=== PATIENT | female | born 1930 | race Caucasian/White ===

== ENCOUNTER 2017-09-24 08:06 | Observation (INO) ==
--- NOTE | 2017-09-24 08:48 | Emergency Department Note ---
Disposition Clinical Impression: Hyponatremia, Left arm weakness, Anxiety Left shoulder pain Qualifiers: Chronicity: acute Qualified Code(s): M25.512 - Pain in left shoulder Disposition: Admitted As Inpatient Condition: Fair Referrals: Darby Reynoso CNP [Primary Care Provider] - Forms: ED Satisfaction Letter, Work/School Release General Adult HPI - General Chief complaint: ED General Medical Stated complaint: multiple complaints Time Seen by Provider: 09/24/17 08:35 Source: patient, family Mode of arrival: private vehicle Limitations: no limitations Nursing Notes Reviewed: Yes Vital Signs Reviewed: Yes - History of Present Illness Pt Subjective Complaint: Left arm weakness and left leg numbness since yesterday , tired and weak for Onset (ago): day(s) (Left arm weakness, left leg numbness since yesterday morning. Tired and weak all over for months) Location: left, upper extremity (Left arm feels weak. However, she has also describes pain in the shoulder with certain movements. No known trauma or injury) Radiation: non-radiation Pain Severity: moderate Pain Scale: 5 Quality: stabbing, sharp Consistency: intermittent Improves with: immobilization Worsens with: movement, other (Use) Associated symptoms: Reports: confusion ("Sometimes" per family member), loss of appetite, weakness. Denies: chest pain, cough, diaphoresis, fever/chills, headaches, malaise, nausea/vomiting, rash, seizure, shortness of breath, syncope Treatments Prior to Arrival: none - Related Data Home Medications Medication Instructions Recorded Confirmed Cyanocobalamin (B-12) [Vitamin B12] 1,000 mcg PO DAILY 09/24/17 09/24/17 raNITIdine HCl [Zantac] 150 mg PO DAILY 09/24/17 09/24/17 Allergies Allergy/AdvReac Type Severity Reaction Status Date / Time Penicillins Allergy Hives Verified 09/24/17 10:27 All systems ED: reviewed and negative except as stated. Review of Systems: As Per HPI Constitutional: Reports: as per HPI, weakness. Denies: fever, chills, weight change, night sweats Eyes: Denies: eye pain, eye discharge, vision change ENT ED: Reports: congestion ("A little" per patient) Cardiovascular: Reports: dyspnea on exertion (Sometimes per family member). Denies: chest pain, palpitations, orthopnea, edema, syncope Respiratory: Denies: cough, dyspnea, wheezes, stridor Gastrointestinal: Denies: abdominal pain, nausea, vomiting, diarrhea, constipation Genitourinary: Denies: urgency, dysuria, frequency, hematuria Musculoskeletal: Denies: back pain, neck pain, joint swelling, arthralgia Integumentary: Denies: rash, lesions, pruritus Neurological: Reports: as per HPI, weakness, numbness (Intermittent, left leg). Denies: headache, paresthesias, vertigo Psychiatric: Reports: anxiety (Patient states, "I am so very anxious and I do not want to be here."), depression (Family expresses concerns that the patient is experiencing depression). Denies: suicidal thoughts, homicidal thoughts, auditory hallucinations, visual hallucinations Endocrine: Reports: fatigue Hematological/Lymphatic: Denies: easy bleeding, easy bruising Past Medical History - Past Medical History Attestation: Yes The following information was validated with the patient. Source: patient, old records reviewed, obtained from family Medical history: Reports: hypertension (Prescription medications stopped two years ago), osteoporosis Surgical history: Reports: non-contributory Psychiatric history: Reports: no psych history - Social History Smoking Status: Never smoker Alcohol use: Reports: none Drug use: Reports: none Physical Exam - General Limitations: no limitations General appearance: alert, in no apparent distress, anxious - Head Head exam: atraumatic, normocephalic, normal inspection - Eye Eye exam: Present: normal appearance, PERRL, EOMI. Absent: scleral icterus, conjunctival injection, nystagmus, miosis, mydriasis, periorbital swelling, periorbital tenderness - ENT ENT exam: mucous membranes dry - Neck Neck exam: Present: normal inspection, full ROM, trachea midline. Absent: tenderness, meningismus, lymphadenopathy - Chest Chest inspection: Present: normal inspection - Respiratory Respiratory exam: Present: normal lung sounds bilaterally. Absent: respiratory distress - Cardiovascular Cardiovascular exam: Present: regular rate, normal rhythm, normal heart sounds - Extremities Exam Extremities exam: Present: normal inspection, full ROM, normal capillary refill. Absent: tenderness, pedal edema, joint swelling, calf tenderness - Back Exam Back exam: Present: normal inspection. Absent: tenderness - Neurological Exam Neurological exam: Present: alert, oriented X3, CN II-XII intact, reflexes normal. Absent: motor sensory deficit - Expanded Neurological Exam Patient oriented to: Present: person, place, time Speech: Present: fluid speech Cranial nerves: EOM function (II, III, IV, ): Normal, facial sensation (V): Normal, facial palsy (VII): Normal, gag reflex (IX): Normal, spinal accessory function (XI): Normal, tongue deviation (XII): Normal Cerebellar function: finger to nose: Normal, heel to ortiz: Normal Motor strength - LUE: 4/5 (pain in left shoulder with flexion) Motor strength - RUE: 5/5 Motor strength - LLE: 5/5 Motor strength - RLE: 5/5 Upper motor neuron exam: yuli neglect: Absent bilaterally, pronator drift: Present on left (Possibly due to left shoulder pain) Sensory exam upper extremity: light touch: Normal Sensory exam lower extremity: light touch: Normal Coma Scale Eye Opening: Spontaneous Coma Scale Motor Response: Obeys Commands Coma Scale Verbal Response: Oriented Coma Scale Total: 15 - Psychiatric Psychiatric exam: Present: normal affect, anxious - Skin Skin exam: Present: warm, dry, intact, normal color Course Course Narrative: Patient was brought in by family for evaluation of left upper extremity weakness , left lower extremity numbness, both occurring since yesterday morning. Patient also describes having generalized weakness, fatigue and poor appetite for about a month. There have been no recent changes in medications or significant life stressors. Patient is anxious about being here and feels that that is the reason why her blood pressure is elevated. She denies chest pain, shortness of breath, dyspnea on exertion, although her family member notes that patient does sometimes get short of breath with minimal exertion. Family member pulled me aside and expresses concerns that the patient is exhibiting signs of depression. She also has had some recent changes in cognition. She has discussed these things with the primary care provider. Patient tried an antidepressant, times one dose, but was unable to tolerate it. Yesterday his onset of left arm weakness and left leg numbness are ultimately what prompted her visit today. Labs, EKG, CT and fluids have been ordered. Patient's head CT is normal per radiologist. Labs are normal except for a low sodium, 132. EKG shows a sinus arrhythmia with T wave inversions in V2 and V3 plus flattened T waves in leads one, V4. No ST elevation or depression noted. EKG is essentially unchanged compared to February 2015. Chest x-ray was read by the radiologist as no acute abnormality. Case was discussed with Dr. Holcomb. He recommends MRI of the brain to further evaluate the left upper extremity weakness.. This has been ordered. On my exam, she had some pain in the left shoulder with performance of pronator drift and strength testing. However, on his exam, patient did not complain of significant pain and had a slight drift on the left side. MR read by Rad as no acute infarct. Patient expressed to family that she is having left upper back and posterior shoulder pain. Concern for ACS. Troponin normal. Will admit for serial enzymes and further observation / eval. Plan discussed with Dr. Holcomb. - Reevaluation(s) Reevaluation #1: Patient describes left-sided upper back pain to her niece. Troponin has been added on. Vital Signs Temperature 97.7 F 09/24/17 08:16 Pulse Rate 77 09/24/17 08:16 Respiratory Rate 16 09/24/17 08:16 Blood Pressure 194/104 09/24/17 08:16 O2 Sat by Pulse Oximetry 96 09/24/17 08:16 Temperature 97.7 F 09/24/17 09:29 Pulse Rate 97 09/24/17 14:39 Respiratory Rate 18 09/24/17 14:39 Blood Pressure 189/100 09/24/17 14:39 O2 Sat by Pulse Oximetry 98 09/24/17 14:39 Oxygen Delivery Oxygen Delivery Room Air Medical Decision Making - Medical Records Medical records reviewed: Yes I reviewed the patient's medical records. - Lab Data Lab results reviewed: Yes I reviewed the patient's lab results. Lab results narrative: Laboratory Last Values WBC 8.0 K/mcL (4.3-11.1) 09/24/17 09:05 RBC 4.78 M/mcL (3.82-4.97) 09/24/17 09:05 Hgb 14.8 g/dL (11.5-15.4) 09/24/17 09:05 Hct 43.0 % (35.3-44.9) 09/24/17 09:05 MCV 90.0 fL (83.0-100.0) 09/24/17 09:05 MCH 31.0 pg (28.0-33.3) 09/24/17 09:05 MCHC 34.4 g/dL (31.6-35.5) 09/24/17 09:05 RDW 12.4 % (11.5-14.5) 09/24/17 09:05 Plt Count 384 K/mcL (140-400) 09/24/17 09:05 MPV 9.0 fL (9.4-12.4) L 09/24/17 09:05 Immature Gran % 0.4 % (0-4) 09/24/17 09:05 Seg Neutrophils % 65.7 % 09/24/17 09:05 Lymphocytes % 23.2 % 09/24/17 09:05 Monocytes % 8.6 % 09/24/17 09:05 Eosinophils % 1.4 % 09/24/17 09:05 Basophils % 0.7 % 09/24/17 09:05 Neutrophils # 5.3 K/mcL (1.6-8.9) 09/24/17 09:05 Lymphocytes # 1.9 K/mcL (0.6-4.6) 09/24/17 09:05 Monocytes # 0.7 K/mcL (0.0-1.3) 09/24/17 09:05 Eosinophils # 0.1 K/mcL (0.0-0.6) 09/24/17 09:05 Basophils # 0.1 K/mcL (0.0-0.2) 09/24/17 09:05 Sodium 132 mEq/L (136-145) L 09/24/17 09:05 Potassium 4.2 mEq/L (3.5-5.1) 09/24/17 09:05 Chloride 100 mEq/L (98-107) 09/24/17 09:05 Carbon Dioxide 24 mEq/L (23-29) 09/24/17 09:05 BUN 15 mg/dL (8-23) 09/24/17 09:05 Creatinine 0.84 mg/dL (0.60-1.20) 09/24/17 09:05 Est GFR ( Amer) > 60 (> 60) 09/24/17 09:05 Est GFR (Non-Af Amer) > 60 (> 60) 09/24/17 09:05 BUN/Creatinine Ratio 18 (6-26) 09/24/17 09:05 Glucose 106 mg/dL (70-105) H 09/24/17 09:05 Calculated Osmolality 275 (280-300) L 09/24/17 09:05 Calcium 10.0 mg/dL (8.6-10.3) 09/24/17 09:05 Magnesium 1.8 mg/dL (1.6-2.6) 09/24/17 09:05 Total Bilirubin 0.5 mg/dL (0.3-1.0) 09/24/17 09:05 AST 16 Units/L (13-39) 09/24/17 09:05 ALT 14 Units/L (7-52) 09/24/17 09:05 Alkaline Phosphatase 47 Units/L (34-104) 09/24/17 09:05 Troponin I 0.03 ng/mL (< 0.04) 09/24/17 14:56 Serum Total Protein 6.9 g/dL (6.4-8.9) 09/24/17 09:05 Albumin 4.4 g/dL (3.5-5.7) 09/24/17 09:05 Globulin 2.5 g/dL (2.4-3.5) 09/24/17 09:05 Albumin/Globulin Ratio 1.8 (1.1-2.2) 09/24/17 09:05 TSH 2.500 mcIU/mL (0.340-5.600) 09/24/17 09:05 Urine Color Yellow (Yellow) 09/24/17 08:49 Urine Clarity Clear (Clear) 09/24/17 08:49 Urine pH 7.0 pH Units (5.0-8.0) 09/24/17 08:49 Ur Specific [place] 1.016 (1.010-1.025) 09/24/17 08:49 Urine Protein Negative mg/dL (Neg-Trace) 09/24/17 08:49 Urine Glucose (UA) Normal mg/dL (Normal) 09/24/17 08:49 Urine Ketones Negative mg/dL (Negative) 09/24/17 08:49 Urine Blood Negative (Negative) 09/24/17 08:49 Urine Nitrite Negative (Negative) 09/24/17 08:49 Urine Bilirubin Negative (Negative) 09/24/17 08:49 Urine Urobilinogen Normal mg/dL (Normal) 09/24/17 08:49 Ur Leukocyte Esterase Moderate (Negative) H 09/24/17 08:49 Urine Microscopic RBC 3-5 per hpf (0-3) H 09/24/17 08:49 Urine Microscopic WBC 5-15 per hpf (0-3) H 09/24/17 08:49 Ur Squamous Epith Cells Many per lpf (None-Few) H 09/24/17 08:49 Urine Bacteria None Seen per hpf (None-Few) 09/24/17 08:49 Hyaline Casts None Seen per lpf (None-Few) 09/24/17 08:49 Ur Culture Indicated? NO. (NO) A 09/24/17 08:49 Result diagrams: 09/24/17 09:05 09/24/17 09:05 Lab Results 09/24/17 09/24/17 09/24/17 Range/Units 08:49 09:05 09:05 WBC 8.0 (4.3-11.1) K/mcL RBC 4.78 (3.82-4.97) M/mcL Hgb 14.8 (11.5-15.4) g/dL Hct 43.0 (35.3-44.9) % MCV 90.0 (83.0-100.0) fL MCH 31.0 (28.0-33.3) pg MCHC 34.4 (31.6-35.5) g/dL RDW 12.4 (11.5-14.5) % Plt Count 384 (140-400) K/mcL MPV 9.0 L (9.4-12.4) fL Immature Gran % 0.4 (0-4) % Seg Neutrophils % 65.7 % Lymphocytes % 23.2 % Monocytes % 8.6 % Eosinophils % 1.4 % Basophils % 0.7 % Neutrophils # 5.3 (1.6-8.9) K/mcL Lymphocytes # 1.9 (0.6-4.6) K/mcL Monocytes # 0.7 (0.0-1.3) K/mcL Eosinophils # 0.1 (0.0-0.6) K/mcL Basophils # 0.1 (0.0-0.2) K/mcL Sodium 132 L (136-145) mEq/L Potassium 4.2 (3.5-5.1) mEq/L Chloride 100 (98-107) mEq/L Carbon Dioxide 24 (23-29) mEq/L BUN 15 (8-23) mg/dL Creatinine 0.84 (0.60-1.20) mg/dL Est GFR ( Amer) > 60 (> 60) Est GFR (Non-Af Amer) > 60 (> 60) BUN/Creatinine Ratio 18 (6-26) Glucose 106 H (70-105) mg/dL Calculated Osmolality 275 L (280-300) Calcium 10.0 (8.6-10.3) mg/dL Magnesium 1.8 (1.6-2.6) mg/dL Total Bilirubin 0.5 (0.3-1.0) mg/dL AST 16 (13-39) Units/L ALT 14 (7-52) Units/L Alkaline Phosphatase 47 (34-104) Units/L Troponin I (< 0.04) ng/mL Serum Total Protein 6.9 (6.4-8.9) g/dL Albumin 4.4 (3.5-5.7) g/dL Globulin 2.5 (2.4-3.5) g/dL Albumin/Globulin Ratio 1.8 (1.1-2.2) TSH 2.500 (0.340-5.600) mcIU/mL Urine Color Yellow (Yellow) Urine Clarity Clear (Clear) Urine pH 7.0 (5.0-8.0) pH Units Ur Specific Whitmore 1.016 (1.010-1.025) Urine Protein Negative (Neg-Trace) mg/dL Urine Glucose (UA) Normal (Normal) mg/dL Urine Ketones Negative (Negative) mg/dL Urine Blood Negative (Negative) Urine Nitrite Negative (Negative) Urine Bilirubin Negative (Negative) Urine Urobilinogen Normal (Normal) mg/dL Ur Leukocyte Esterase Moderate H (Negative) Urine Microscopic RBC 3-5 H (0-3) per hpf Urine Microscopic WBC 5-15 H (0-3) per hpf Ur Squamous Epith Cells Many H (None-Few) per lpf Urine Bacteria None Seen (None-Few) per hpf Hyaline Casts None Seen (None-Few) per lpf Ur Culture Indicated? NO. A (NO) 09/24/17 Range/Units 14:56 WBC (4.3-11.1) K/mcL RBC (3.82-4.97) M/mcL Hgb (11.5-15.4) g/dL Hct (35.3-44.9) % MCV (83.0-100.0) fL MCH (28.0-33.3) pg MCHC (31.6-35.5) g/dL RDW (11.5-14.5) % Plt Count (140-400) K/mcL MPV (9.4-12.4) fL Immature Gran % (0-4) % Seg Neutrophils % % Lymphocytes % % Monocytes % % Eosinophils % % Basophils % % Neutrophils # (1.6-8.9) K/mcL Lymphocytes # (0.6-4.6) K/mcL Monocytes # (0.0-1.3) K/mcL Eosinophils # (0.0-0.6) K/mcL Basophils # (0.0-0.2) K/mcL Sodium (136-145) mEq/L Potassium (3.5-5.1) mEq/L Chloride (98-107) mEq/L Carbon Dioxide (23-29) mEq/L BUN (8-23) mg/dL Creatinine (0.60-1.20) mg/dL Est GFR ( Amer) (> 60) Est GFR (Non-Af Amer) (> 60) BUN/Creatinine Ratio (6-26) Glucose (70-105) mg/dL Calculated Osmolality (280-300) Calcium (8.6-10.3) mg/dL Magnesium (1.6-2.6) mg/dL Total Bilirubin (0.3-1.0) mg/dL AST (13-39) Units/L ALT (7-52) Units/L Alkaline Phosphatase (34-104) Units/L Troponin I 0.03 (< 0.04) ng/mL Serum Total Protein (6.4-8.9) g/dL Albumin (3.5-5.7) g/dL Globulin (2.4-3.5) g/dL Albumin/Globulin Ratio (1.1-2.2) TSH (0.340-5.600) mcIU/mL Urine Color (Yellow) Urine Clarity (Clear) Urine pH (5.0-8.0) pH Units Ur Specific Whitmore (1.010-1.025) Urine Protein (Neg-Trace) mg/dL Urine Glucose (UA) (Normal) mg/dL Urine Ketones (Negative) mg/dL Urine Blood (Negative) Urine Nitrite (Negative) Urine Bilirubin (Negative) Urine Urobilinogen (Normal) mg/dL Ur Leukocyte Esterase (Negative) Urine Microscopic RBC (0-3) per hpf Urine Microscopic WBC (0-3) per hpf Ur Squamous Epith Cells (None-Few) per lpf Urine Bacteria (None-Few) per hpf Hyaline Casts (None-Few) per lpf Ur Culture Indicated? (NO) - Radiology Data Radiology results reviewed: Yes I reviewed the patient's radiology results. Head CT 09/24/17 09:05 IMPRESSION: No acute intracranial abnormality. Chronic small vessel disease. D/ / Ajay Castro MD / Ajay Castro MD Interpreting Provider: Ajay Castro MD Chest X-Ray 09/24/17 10:06 IMPRESSION: 1. No acute cardiopulmonary disease. D/ / Isaac Means MD / Isaac Means MD Interpreting Provider: Isaac Means MD Brain MRI 09/24/17 11:13 IMPRESSION: 1. No evidence of an acute infarct. 2. 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 3. Marked cerebral and cerebellar parenchymal volume loss with mild chronic microvascular white matter ischemic disease. D/ / 09/24/2017 14:53:34 Isaac Means MD / [facility] Interpreting Provider: Isaac Means MD
[2017-09-24 08:57] LABS: Bilirubin,Urine Negative (Negative); Blood,Urine Negative (Negative); Clarity,Urine Clear (Clear); Color,Urine Yellow (Yellow); Glucose,Urine (UA) Normal (Normal); Ketones,Urine Negative (Negative); Leukocyte Esterase,Urine Moderate (Negative); Nitrite,Urine Negative (Negative); Protein,Urine Negative (Neg-Trace); Specific Gravity,Urine 1.016 (1.010-1.025); Urobilinogen,Urine Normal (Normal)
[2017-09-24 08:59] LABS: Bacteria,Urine None Seen per hpf (None-Few); Hyaline Casts,Urine None Seen per lpf (None-Few); Squamous Epithelial Cell,Urine Many per lpf (None-Few)
[2017-09-24 09:21] LABS: Basophils # 0.1 K/mcL (0.0-0.2); Basophils % 0.7 %; Eosinophils # 0.1 K/mcL (0.0-0.6); Eosinophils % 1.4 %; Hemoglobin 14.8 g/dL (11.5-15.4); Immature Granulocytes % 0.4 % (0-4); Lymphocytes # 1.9 K/mcL (0.6-4.6); Lymphocytes % 23.2 %; Mean Corpuscular HGB Conc 34.4 g/dL (31.6-35.5); Monocytes # 0.7 K/mcL (0.0-1.3); Monocytes % 8.6 %; Neutrophils # 5.3 K/mcL (1.6-8.9); Platelet Count 384 K/mcL (140-400); Red Blood Count 4.78 M/mcL (3.82-4.97); Red Cell Distribution Width 12.4 % (11.5-14.5); Segmented Neutrophils % 65.7 %
[2017-09-24 09:44] LABS: Alanine Aminotransferase 14 Units/L (7-52); Albumin 4.4 g/dL (3.5-5.7); Albumin/Globulin Ratio 1.8 (1.1-2.2); Alkaline Phosphatase 47 Units/L (34-104); Aspartate Amino Transferase 16 Units/L (13-39); BUN/Creatinine Ratio 18 (6-26); Bilirubin,Total 0.5 mg/dL (0.3-1.0); Blood Urea Nitrogen 15 mg/dL (8-23); Carbon Dioxide 24 mEq/L (23-29); Chloride 100 mEq/L (98-107); Globulin 2.5 g/dL (2.4-3.5); Glucose 106 mg/dL (70-105); Magnesium 1.8 mg/dL (1.6-2.6); Osmolality,Calculated 275 (280-300); Potassium 4.2 mEq/L (3.5-5.1); Sodium 132 mEq/L (136-145); Total Protein 6.9 g/dL (6.4-8.9); eGFR For African Americans > 60 (> 60); eGFR For Non-African Americans > 60 (> 60)
[2017-09-24] MEDS ORDERED: Gadolinium Contrast Agent (WT Based) IV PRN (11:13)
[2017-09-24] MEDS ORDERED: 0.9 % Sodium Chloride 1,000 ML IVC ONE (11:14)
[2017-09-24] MEDS ORDERED: *HR* LORazepam 0.5 MG TABLET PO ONE ×2 (12:37→15:28)
--- NOTE | 2017-09-24 13:10 | Electrocardiograph Report ---
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
--- NOTE | 2017-09-24 16:39 | Event Note ---
Date of Encounter: 09/24/17 Time of Encounter: 16:33 Patient was seen and examined. I agree with the H&P as written by Lory Montiel NP. 87 year old female with history of hyperlipidemia, hypertension, depression, and osteoporosis. patient will be admitted mostly for social concerns and generalized deconditioning. Family reports cognitive decline as well. Reported left upper extremity and left lower ext weakness worse since yesterday. CT head and MRI brain with noting acute. Patient mentioned left arm pain and left back pain and ED was worried about ACS. EKG with no acute ST and T wave abnormalities. trops first set not elevated. Rest of labs unremarkable. BP constantly elevated in the ED with initial BP of 194/104. NAD, A/Ox3 S1, S2, No m/r/g CTAB Abd soft, NT, ND CNII-XII intact. Nonfocal exam. Will admit PT/OT trend cardiac enzymes. IV hydralazine PRN Resume home meds. DVT ppx.
[2017-09-24] MEDS ORDERED: Naloxone 0.4 MG/ML INJ IVP PRN (17:02)
[2017-09-24] MEDS: 0.9 % Sodium Chloride 1,000 ML IVC SCH (17:26)
--- NOTE | 2017-09-24 17:27 | Internal Med History&Physical ---
Date of Encounter: 09/24/17 Time of Encounter: 17:12 Internal Medicine - H&P: HPI Chief complaint: Confusion, and left-sided weakness and pain Admitted From: Home Plans for Post Hospital Care: Home History of present illness: Ms. Pearson is a 87 year old female who presented with confusion, left sided weakness to left arm and left leg numbness. The patient is alert and oriented to person and place. Will get neuro checks q shift. She does not seem reliable with some information. She indicated that she has had a bout of diarrhea a few weeks ago and then again 2 days ago. The patient bp is elevated at 182/96, hydralazine to be given. The patient indicated that she has a diagnosis of htn, but her pcp stopped the med because her bp was in control. She uses a cane at home. She is unsure of her code status, nursing to ask the patient dtr when she returns. Patient with a NA of 132, will continue IVF's. Ct of head showed chronic small vessel dx. CXR is negative. MRI showed no acute infarct, chronic lacunar infarcts in various areas of brain. Will order PT/OT evaluations. The patient also c/o pain to the left arm, denies chest pain, however will trend serial cardiac enzymes. Past Med Surg Social Fam HX - Past Medical History Medical history: hypertension (Prescription medications stopped two years ago), osteoporosis Psychiatric history: no psych history - Past Surgical History Surgical History: non-contributory Additional surgical history: D&C, hemmorhoidectomy, thumb surgery - Social History Smoking Status: Never smoker Alcohol use: none Drug use: none - Family History Father Adopted: No Living Status: Hx Family Cardiac Disorders: Yes Hx Family Respiratory Disorders: Yes Internal Medicine - H&P: Meds Cyanocobalamin (B-12) [Vitamin B12] 1,000 mcg PO DAILY 09/24/17 [History] raNITIdine HCl [Zantac] 150 mg PO DAILY 09/24/17 [History] 3 Allergy/AdvReac Type Severity Reaction Status Date / Time Penicillins Allergy Hives Verified 09/24/17 10:27 All Systems PM: A 10-system review of systems was performed and is negative for pertinent findings except as documented above in the HPI. - Constitutional Constitutional: no chills, no fever(s), no night sweats - EENT Eyes: no change in vision, no discharge, no pain, no photophobia Ears: no ear discharge, no ear pain, no tinnitus Nose, mouth and throat: no dysphagia, no nasal discharge, no neck pain, no sore throat - Cardiovascular Cardiovascular ROS IM: no chest pain, no diaphoresis, no dyspnea, no lightheadedness, no palpitations, no syncope - Respiratory Respiratory: no cough, no dyspnea, no wheezing, no excessive phlegm production - Gastrointestinal Gastrointestinal: no abdominal pain, no diarrhea, no hematemesis, no hematochezia, no melena, no nausea, no vomiting - Genitourinary Genitourinary: no change in urinary stream, no dysuria, no flank pain, no hematuria - Musculoskeletal Musculoskeletal ROS IM: no numbness, no tingling - Integumentary Integumentary IM: no rash, no unusual bruising - Neurological Neurological ROS: confusion, headache(s), numbness (Left leg), weakness (left arm), no convulsions, no focal weakness, no tingling, no tremor(s) - Hematologic/Lymphatic Hematologic/Lymphatic: no easy bruising - Constitutional Vitals: Temp Pulse Resp BP Pulse Ox 98.1 F 76 16 182/96 97 09/24/17 16:30 09/24/17 16:30 09/24/17 16:30 09/24/17 16:30 09/24/17 16:30 General appearance: Present: cooperative, A&O X 3 - Head Head exam: Present: atraumatic, normocephalic - Eye Eye exam: Present: PERRL, conjuntiva pink, sclera anicteric Pupils: Present: PERRL - Neck Neck exam general surgery: Present: supple, trachea midline. Absent: lymphadenopathy - Respiratory Respiratory exam: Present: decreased breath sounds. Absent: accessory muscle use, rales, rhonchi, wheezes - Cardiovascular Cardiovascular exam: Present: irregular rhythm (PAC's), +S1, +S2. Absent: diastolic murmur, gallop, rubs, systolic murmur - GI/Abdominal GI/Abdominal exam: Present: normal bowel sounds, soft, no peritoneal signs. Absent: distended, tenderness - Extremities Exam Extremities exam: Present: warm, radial pulses palpable and symmetrical. Absent : calf tenderness, cyanotic, pedal edema - Neurological Exam Neurological exam: Present: CN II-XII intact, oriented X3, no focal deficits. Absent: strengths equal and symetr throughout (left leg weakness), pronater drift, facial droop, speech deficit - Skin Skin exam: Present: dry, intact Internal Med - H&P Results - Labs CBC & Chem 7: 09/24/17 09:05 09/24/17 09:05 - Assessment and plan (1) Left arm weakness Current Visit: Yes Status: Acute Assessment and plan: Patient indicated left arm weakness, neuro check showed equal strength in upper extremities but some weakness in the left leg. CT and MRI negative for acute infarcts and /or bleeds Neuro checks q shift PT/OT evalualtion (2) Hyponatremia Current Visit: Yes Status: Acute Assessment and plan: Daily CBC and BMP Continue IVF's (3) Left shoulder pain Current Visit: Yes Status: Acute Assessment and plan: Will trend serial cardiac enzymes PT/OT eval Qualifiers: Chronicity: acute Qualified Code(s): M25.512 - Pain in left shoulder (4) Dehydration Current Visit: No Status: Acute Assessment and plan: Monitor daily labs Continue IVF's (5) Hypertension Current Visit: Yes Status: Acute Assessment and plan: Patient indicated that she has history of HTN. Bp is uncontrolled 1x dose of hydralazine Plan to monitor Qualifiers: Hypertension type: essential hypertension Qualified Code(s): I10 - Essential (primary) hypertension - Time Spent With Patient Total time spent is greater than 50% in coordination of care (as documented) at patient's floor/unit and/or counseling patient: less than 15 minutes
[2017-09-24] MEDS ORDERED: Acetaminophen 325 MG TABLET PO PRN (21:17)
[2017-09-25 01:17] LABS: Basophils # 0.1 K/mcL (0.0-0.2); Basophils % 0.5 %; Eosinophils # 0.1 K/mcL (0.0-0.6); Hematocrit 38.2 % (35.3-44.9); Immature Granulocytes % 0.5 % (0-4); Lymphocytes # 2.2 K/mcL (0.6-4.6); Lymphocytes % 20.9 %; Mean Corpuscular Hemoglobin 30.2 pg (28.0-33.3); Mean Corpuscular Volume 88.8 fL (83.0-100.0); Mean Platelet Volume 9.2 fL (9.4-12.4); Monocytes % 9.3 %; Neutrophils # 7.2 K/mcL (1.6-8.9); Platelet Count 354 K/mcL (140-400); Red Cell Distribution Width 12.8 % (11.5-14.5); Segmented Neutrophils % 67.8 %
[2017-09-25] MEDS ORDERED: Melatonin 3 MG TABLET PO PRN (01:23)
[2017-09-25 01:34] LABS: BUN/Creatinine Ratio 18 (6-26); Blood Urea Nitrogen 13 mg/dL (8-23); Calcium 8.5 mg/dL (8.6-10.3); Carbon Dioxide 21 mEq/L (23-29); Chloride 105 mEq/L (98-107); Glucose 93 mg/dL (70-105); Magnesium 1.7 mg/dL (1.6-2.6); Osmolality,Calculated 274 (280-300); Sodium 132 mEq/L (136-145); eGFR For African Americans > 60 (> 60); eGFR For Non-African Americans > 60 (> 60)
[2017-09-25] MEDS: 0.9 % Sodium Chloride 1,000 ML IVC SCH (05:57)
[2017-09-25] MEDS: Famotidine 20 MG TABLET PO SCH (08:16)
[2017-09-25] MEDS: Cyanocobalamin (B-12) 1,000 MCG TABLET PO SCH (08:17)
[2017-09-25] MEDS: hydrOXYzine pamoate 25 MG CAPSULE PO PRN (11:38)
--- NOTE | 2017-09-25 15:53 | Internal Med Progress Note ---
Date of Encounter: 09/25/17 Time of Encounter: 10:35 - Assessment and plan (1) Left arm weakness Current Visit: Yes Status: Acute Assessment and plan: Continues to report subjective left upper extremity numbness and weakness, no motor deficit on object in assessment. CT head showed no acute infarct. MRI brain showed chronic lacunar infarcts, marked cerebral parenchymal volume loss and chronic microvascular ischemic disease. Check lipid profile. Continue telemetry monitoring, serial troponins negative for ACS. Pending echocardiogram and carotid Dopplers. Physical and occupational therapy evaluation. (2) Depression Current Visit: Yes Status: Chronic Qualifiers: Depression Type: unspecified Qualified Code(s): F32.9 - Major depressive disorder, single episode, unspecified (3) Anxiety Current Visit: Yes Status: Chronic Assessment and plan: When necessary hydroxyzine. (4) Hypertension Current Visit: Yes Status: Chronic Assessment and plan: Patient is not noted to be on antihypertensives at home, presented with uncontrolled blood pressure, which is currently better controlled. Will start low-dose beta roberto. On PRN IV Hydralazine for appropriate BP control. Qualifiers: Hypertension type: essential hypertension Qualified Code(s): I10 - Essential (primary) hypertension - Time Spent With Patient Total time spent is greater than 50% in coordination of care (as documented) at patient's floor/unit and/or counseling patient: - Subjective Interval history: Reports feeling better; alert and oriented; reports left arm weakness and numbness; no dysphagia, slurred speech, blurred vision; - Constitutional Vitals: Temp Pulse Resp BP Pulse Ox 98.3 F 75 15 143/81 94 09/25/17 06:56 09/25/17 10:37 09/25/17 10:37 09/25/17 10:37 09/25/17 06:56 General appearance: Present: cooperative, A&O X 3, answers questions appropriately - Respiratory Respiratory exam: Present: CTAB. Absent: accessory muscle use, rales, rhonchi, wheezes - Cardiovascular Cardiovascular exam: Present: irregular rhythm, +S1, +S2. Absent: diastolic murmur, gallop, rubs, systolic murmur - GI/Abdominal GI/Abdominal exam: Present: normal bowel sounds, soft, no peritoneal signs. Absent: distended, tenderness - Extremities Exam Extremities exam: Present: full ROM, warm, radial pulses palpable and symmetrical. Absent: calf tenderness, cyanotic, pedal edema - Neurological Exam Neurological exam: Present: CN II-XII intact, oriented X3, no focal deficits. Absent: pronater drift, facial droop, speech deficit Internal Medicine: Result - Labs CBC & Chem 7: 09/25/17 00:42 09/25/17 00:42 Labs: Short CBC 09/25/17 Range/Units 00:42 WBC 10.7 (4.3-11.1) K/mcL Hgb 13.0 D (11.5-15.4) g/dL Hct 38.2 (35.3-44.9) % Plt Count 354 (140-400) K/mcL Neutrophils # 7.2 (1.6-8.9) K/mcL BMP 09/25/17 00:42 Sodium 132 L Potassium 4.0 Chloride 105 Carbon Dioxide 21 L BUN 13 Creatinine 0.72 Glucose 93 Calcium 8.5 L Cardiac Enzymes 09/24/17 09/25/17 09/25/17 Range/Units 18:07 00:42 06:06 Troponin I 0.03 0.04 H* 0.04 H* (< 0.04) ng/mL - VTE Documentation of Mechanical Device: Venous foot pump, device Consult Discharge Plan - Plan Referrals: Darby Reynoso, [employer] [Primary Care Provider] -
[2017-09-25] MEDS: *HR* Heparin 5,000 UNIT/ML VIAL SQ SCH ×2 (17:53→20:59)
[2017-09-25] MEDS: Aspirin Enteric Coated 81 MG Tablet PO SCH (17:53)
[2017-09-26] MEDS: *HR* Heparin 5,000 UNIT/ML VIAL SQ SCH (05:59)
[2017-09-26] MEDS: Aspirin Enteric Coated 81 MG Tablet PO SCH (09:24)
[2017-09-26] MEDS: Cyanocobalamin (B-12) 1,000 MCG TABLET PO SCH (09:24)
[2017-09-26] MEDS: Famotidine 20 MG TABLET PO SCH (09:24)
--- NOTE | 2017-09-26 10:52 | Discharge Summary ---
- NOTES TO OUTPATIENT PROVIDER Notes to Outpatient Provider: Possible TIA vs cervical spinal neuropathy/ stenosis causing left upper extremity weakness and numbness; improving now. Stroke workup negative. Uncontrolled HTN, started low dose beta roberto;. Needs outpatient OT; Date of Encounter: 09/26/17 Time of Encounter: 10:50 - Discharge Diagnosis (1) Left arm weakness Priority: Primary Status: Acute (2) Depression Priority: Secondary Status: Chronic Qualifiers: Depression Type: unspecified Qualified Code(s): F32.9 - Major depressive disorder, single episode, unspecified (3) Anxiety Priority: Secondary Status: Chronic (4) Hypertension Priority: Secondary Status: Chronic Qualifiers: Hypertension type: essential hypertension Qualified Code(s): I10 - Essential (primary) hypertension Hospital course: Ms. Pearson is a 87 year old female with history of hypertension, was admitted with new onset of left upper extremity numbness and subjective weakness. Initial CT head and MRI brain done in the emergency room showed no acute infarcts, chronic microvascular ischemic changes. telemetry was uneventful except sinus arrhythmia, serial troponins remained negative. Bilateral carotid Doppler showed nonstenotic plaque. Echocardiogram showed preserved EF, no acute abnormality. Patient was noted to have uncontrolled hypertension at admission, started on low -dose beta robetro, currently better controlled. Physical and occupational therapy evaluation was completed. Recommended outpatient OT. Plan of care discussed with patient's caregiver, niece at bedside. Patient will follow up with PCP, may need CT of cervical spine for continued left arm symptoms to rule out cervical spinal stenosis versus foraminal narrowing. She is also being discharged on when necessary hydroxyzine for anxiety. Discharge discussed with: patient, nurse, case management - Time Spent with Patient Total time spent providing and/or coordinating discharge services: Greater than 30 minutes (40 min) - Discharge Medications Prescriptions: Aspirin Enteric Coated [Aspirin EC] 81 mg PO DAILY #30 tablet. Atorvastatin [Lipitor] 10 mg PO HS #30 tablet hydrOXYzine pamoate [HydrOXYzine Pamoate] 25 mg PO Q8H PRN #10 capsule PRN Reason: Anxiety Metoprolol [Lopressor] 12.5 mg PO BID #30 tablet Home Medications: Cyanocobalamin (B-12) [Vitamin B12] 1,000 mcg PO DAILY 09/24/17 [History] raNITIdine HCl [Zantac] 150 mg PO DAILY 09/24/17 [History] Aspirin Enteric Coated [Aspirin EC] 81 mg PO DAILY #30 tablet. 09/26/17 [Rx] Atorvastatin [Lipitor] 10 mg PO HS #30 tablet 09/26/17 [Rx] Metoprolol [Lopressor] 12.5 mg PO BID #30 tablet 09/26/17 [Rx] hydrOXYzine pamoate [HydrOXYzine Pamoate] 25 mg PO Q8H PRN #10 capsule 09/26/17 [Rx] Allergies/Adverse Reactions: 3 Allergy/AdvReac Type Severity Reaction Status Date / Time Penicillins Allergy Hives Verified 09/24/17 10:27 Date of admission: 09/24/17 15:49 Primary care physician: Darby Reynoso CNP Consults: 09/24/17 17:08 OT [Consult to Occupational Therapy] [CONS] Routine Comment: Evaluate, develop and implement POC Reason for Consult: Weakness on left side Does patient have active BEDREST order?: No Is patient medically & hemodynamically stable?: Yes Patient assessed for mobility or mobilized this visit?: No 09/24/17 17:42 Consult to Nutrition [CONS] Routine Comment: Consulting Provider: NUTRITION Reason for Dietary Consult: MST Score Discharging clinician: Jammie Wilcox Anticipated date of discharge: 09/26/17 - Constitutional Vitals: Temp Pulse Resp BP Pulse Ox 97.6 F 64 16 164/75 97 09/26/17 10:36 09/26/17 10:36 09/26/17 10:36 09/26/17 10:36 09/26/17 10:36 General appearance: Present: cooperative, A&O X 3, answers questions appropriately - Cardiovascular Cardiovascular exam: Present: RRR, +S1, +S2. Absent: diastolic murmur, gallop, rubs, systolic murmur - Patient Status Disposition: Home, Self-Care Condition: Fair Functional capacity at discharge: independent ambulation Overall status at discharge: patient is progressing back to baseline - Discharge Instructions Instructions: Metoprolol (By mouth), Aspirin (By mouth), Hydroxyzine (By mouth) , Atorvastatin (By mouth), Ischemic Stroke (DC), Ischemic Stroke (GEN), Hemorrhagic Stroke (DC), Hemorrhagic Stroke (GEN), Right Hemispheric Stroke (DC) , Right Hemispheric Stroke (GEN), Left Hemispheric Stroke (DC), Left Hemispheric Stroke (GEN), Hypertension (DC), Hypertension (GEN), Anxiety (DC), Anxiety (GEN), Right Hemispheric Stroke, Molder Pipe Covering (GEN), Hemorrhagic Stroke, Molder Pipe Covering (GEN), Ischemic Stroke, Molder Pipe Covering (GEN), Left Hemispheric Stroke, Molder Pipe Covering (GEN) Follow Up With: Darby Reynoso [employer] [Primary Care Provider] - 10/02/17 9:00 am Additional Instructions: F/up with PCP in 1-2 weeks - Diet and Activity Activity: resume usual activities as tolerated Diet: low fat, low cholesterol, low salt diet - VTE Documentation of Mechanical Device: Intermittent pneumatic compression device
[2017-09-26] MEDS ORDERED: Ondansetron 4 MG/2 ML VIAL IVP ONE (12:51)
[2017-09-26] MEDS: hydrOXYzine pamoate 25 MG CAPSULE PO PRN (12:54)
[2017-09-26 15:52] VITALS: BP 121/62
== END 2017-09-26 16:57 | disposition home or self-care (01) ==
LOC: 2NENU 08:06 → EMEROO 08:06 → SUATTDRO 15:49 → 2NENU 16:21
PROVIDERS: ADMIT Internal Medicine; ATTEND Internal Medicine